=== PATIENT | female | born 1975 | race Caucasian/White ===

== ENCOUNTER 2024-06-26 11:59 | Emergency (ER) | payer OTHER, SELFPAY ==
[2024-06-26 12:02] VITALS: BP 116/59; PULSE 82; RESP 19; TEMP 36.6; O2SAT 98; BMI 27.1
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
[2024-06-26 12:05] VITALS: BP 116/59; PULSE 82; RESP 19; TEMP 36.6; O2SAT 98
== END 2024-06-26 12:12 | disposition home or self-care (01) ==
LOC: HO.ED 12:11
PROVIDERS: Emergency Provider Emergency Medicine Emergency Medical Services; PCP Internal Medicine
DX: S13.4XXA Sprain of ligaments of cervical spine, initial encounter (principal); M54.2 Cervicalgia; V43.52XA Car driver injured in collision with other type car in traffic accident, initial encounter; Y93.89 Activity, other specified; Y92.488 Other paved roadways as the place of occurrence of the external cause; Y99.8 Other external cause status
CPT/HCPCS: 99282; 99283; 99284